=== PATIENT | female | born 1985 | race Caucasian/White ===

== ENCOUNTER 2021-11-12 18:11 | Emergency (ER) | payer OTHER, SELFPAY ==
[2021-11-12 18:28] VITALS: BP 118/69; PULSE 88; RESP 22; TEMP 36.8; O2SAT 100
--- NOTE | 2021-11-12 18:50 | DI.US.S_ITS ---
PROCEDURE: US OB <= 14 WEEKS FETUS INDICATIONS: SPOTTING, CRAMPING; HX SAB X 2 OUTSIDE/PRIOR DATING DATA: Last menstrual period (LMP): 09/25/2021. LMP-based estimated date of delivery (CANDI): 07/02/2022. First dating scan (date and location): 11/12/2021 (by mean gestational sac diameter). Estimated date of delivery (CANDI) from first dating scan: 07/10/2022. TECHNIQUE: Real-time scanning was performed of the fetus and maternal pelvic organs, with image documentation. Endovaginal scanning was also performed to better visualize the fetus and maternal ovaries. COMPARISON: None. FINDINGS: Embryo: There is an intrauterine gestational sac demonstrated. Mean sac diameter measures up to 0.9 cm corresponding to a gestational age of 5 weeks 5 days. No discrete yolk sac or pole identified on the current study. Maternal organs: Ovaries appear within normal size limits without adnexal mass identified. IMPRESSION: 1. Intrauterine cystic lesion likely representing a gestational sac with a mean sac diameter corresponding to gestational age of 5 weeks 5 days. No yolk sac or pole identified at this time which may be due to early gestational age. However, the differential includes a spontaneous in progress or an anembryonic . Recommend clinical follow-up and if indicated, a short-term repeat ultrasound may be performed for further evaluation. We strive to produce accurate, complete, and clear reports of imaging services. To assist us in improving patient care, this report was composed using standard report templates and voice recognition software. Therefore, it may contain abnormal punctuation, insertions and/or omissions. Occasional wrong-word or sound-alike substitutions may occur. Though we review the report and make efforts to correct it, we do recommend that the report be read carefully in proper context to recognize any text inaccuracies. Dictated by: Olvin Ramos M.D. on 11/12/2021 at 20:16 Approved by: Olvin Ramos M.D. on 11/12/2021 at 20:19
[2021-11-12 20:36] LABS: HCG Quantitative /Beta subunit 4039.3 mIU/mL
--- NOTE | 2021-11-12 22:39 | ED.PREGNANCY ---
HPI - General Chief complaint: OB/Uterine Contractions Stated complaint: Spotting and Cramping/7 Wks Time Seen by Provider: 11/12/21 22:38 Source: patient Mode of arrival: Ambulatory History of Present Illness HPI Narrative: Patient is a 36-year-old female 2 miscarriages presenting today with what she thinks is 7 weeks with some vaginal cramping and spotting. It started this morning. She has had 2 previous miscarriages got her little concerned. She does not have an appointment with her OB in till 11 weeks. She has no nausea or vomiting. She is taking prenatals. She is not remember her blood type a thinks she is B-positive she never got any RhoGAM from her previous miscarriages or the 1st when she had a placenta previa Related Data Allergies Allergy/AdvReac Type Severity Reaction Status Date / Time No Known Drug Allergies Allergy Verified 11/12/21 18:29 Review of Systems Review of Systems Narrative: GENERAL: Denies chills, fatigue, malaise, fever, sweats, travel HEENT: Denies sinus pain, ear pain, sore throat, difficulty swallowing, neck pain RESPIRATORY: Denies dyspnea, cough, wheezing, hemoptysis, sputum. CARDIOVASCULAR: Denies chest pain, palpitations, orthopnea, edema GASTROINTESTINAL: Denies nausea, vomiting, abdominal pain, diarrhea, constipation, melena. IP LITIGATION PARALEGAL: See HPI : Denies dysuria, frequency, incontinence, hematuria, urinary retention, flank pain. MUSCULOSKELETAL: Denies weakness, joint pain, or bony pain SKIN: No rash, no erythema, no pruritus NEUROLOGIC: Denies weakness, dizziness, headache, numbness, change in speech, confusion PSYCHIATRIC: No concerning psychosocial issues. 12 point review of systems is negative except for those stated above and HPI Exam Initial Vital Signs Initial Vital Signs: Vital Signs Temperature 98.2 F 11/12/21 18:28 Pulse Rate 88 11/12/21 18:28 Respiratory Rate 22 11/12/21 18:28 Blood Pressure 118/69 11/12/21 18:28 Pulse Oximetry 100 11/12/21 18:28 GENERAL: Appearing 36-year-old femaleand in no acute distress. HEENT: Head atraumatic,EOMI, pupils reactive, face symmetric, moist mucous membranes CARDIOVASCULAR: No cyanosis peripheral pulses intact RESPIRATORY: No respiratory distress speaking full is a ABDOMEN: Soft, nontender. Normoactive bowel sounds all 4 quadrants. No guarding or rebound. EXTREMITIES: Normal range of motion, no clubbing or edema. Neurovascularly intact NEUROLOGICAL: Alert and oriented x4. SKIN: Warm, dry, no laceration, no petechiae, no rashes or lesions. Course Orders Ordered: ED Orders 11/12/21 18:50 US OB <= 14 weeks fetus Stat 11/12/21 19:55 HCG Quantitative /Beta subunit Stat Vital Signs Vital signs: Vital Signs - 8 hr 11/12/21 22:58 Pulse Rate 100 H Respiratory Rate 16 Blood Pressure 116/69 Pulse Oximetry 98 MDM - OB/Uterine Contractions Lab Data Labs: Lab Results 11/12/21 Range/Units 19:55 HCG, Quant 4039.3 mIU/mL Point of Care Testing Test Results Positive Urine Dip Bedside Urine Glucose Negative Bedside Urine Bilirubin - Negative Bedside Urine Ketone - Negative Urine Specific [place] 1.015 Bedside Urine Occult Blood - Negative Bedside Urine pH 6 Bedside Urine Protein - Negative Bedside Urine Urobilinogen - Negative Bedside Urine Nitrite - Negative Bedside Urine Leukocytes - Negative Esterase Imaging Data US - OB: Radiologist's Impression: PROCEDURE:? US OB <= 14 WEEKS FETUS ? INDICATIONS:? SPOTTING, CRAMPING; HX SAB X 2 ? OUTSIDE/PRIOR DATING DATA:? Last menstrual period (LMP):? 09/25/2021.? LMP-based estimated date of delivery (CANDI):? 07/02/2022.? First dating scan (date and location):? 11/12/2021 (by mean gestational sac diameter).? Estimated date of delivery (CANDI) from first dating scan:? 07/10/2022. ? TECHNIQUE:? Real-time scanning was performed of the fetus and maternal pelvic organs, with image documentation.? Endovaginal scanning was also performed to better visualize the fetus and maternal ovaries.? ? COMPARISON:? None. ? FINDINGS:? ? Embryo:? There is an intrauterine gestational sac demonstrated.? Mean sac diameter measures up to 0.9 cm corresponding to a gestational age of 5 weeks 5 days.? No discrete yolk sac or pole identified on the current study. ? Maternal organs:? Ovaries appear within normal size limits without adnexal mass identified.? ? ? IMPRESSION:? ? 1. Intrauterine cystic lesion likely representing a gestational sac with a mean sac diameter corresponding to gestational age of 5 weeks 5 days.? No yolk sac or pole identified at this time which may be due to early gestational age.? However, the differential includes a spontaneous in progress or an anembryonic .? Recommend clinical follow-up and if indicated, a short-term repeat ultrasound may be performed for further evaluation. ? We strive to produce accurate, complete, and clear reports of imaging services. To assist us in improving patient care, this report was composed using standard report templates and voice recognition software. Therefore, it may contain abnormal punctuation, insertions and/or omissions. Occasional wrong-word or sound-alike substitutions may occur. Though we review the report and make efforts to correct it, we do recommend that the report be read carefully in proper context to recognize any text inaccuracies. ? Dictated by: Olvin Ramos M.D. on 11/12/2021 at 20:16 ? ? Approved by: Olvin Ramos M.D. on 11/12/2021 at 20:19 ? MDM Narrative Medical decision making narrative: Patient overall appears well very minimal pain. Ultrasound shows a gestational sac without a yolk sac or pole. Concern for possible demise. However can not confirm at this time. She has no significant vaginal bleeding. Recommend repeat hCG in 48 hours. Patient understands that she has had 2 miscarriages in the past and she has 3 healthy children this was a surprise but welcomed . Discharge Plan Departure Patient Disposition: Home Clinical Impression: Miscarriage, threatened, early Instructions: Threatened Miscarriage Activity Restrictions/Additional Instructions: HCG 4039 *You have been diagnosed with possible miscarriage *What to do: At this time ultrasound cannot confirm no heart be is seen but it might be too early. Please have your blood work rechecked in 48 hours. Call your OB tomorrow to see if they can put in an order for you. *Continue to take medications as directed *Follow up with your primary care provider in 2-3 days or call [phone] Call OB tomorrow *Return to ER if you should have increased vaginal bleeding more than 1-2 super pads in 1 hour cramping dizziness lightheadedness persistent vomiting or any new, worsening or concerning symptoms Referrals: Bjorn Barrow RT [Primary Care Provider] - Osmin Kwan MD [Physician] -
[2021-11-12 22:58] VITALS: BP 116/69; PULSE 100; RESP 16; O2SAT 98
== END 2021-11-12 23:05 | disposition home or self-care (01) ==
PROVIDERS: Emergency Provider Emergency Medicine
DX: O20.0 Threatened abortion (principal); Z3A.01 Less than 8 weeks gestation of pregnancy
CPT/HCPCS: 76801; 81003; 81025; 84702; 99282; 99283

== ENCOUNTER → 2021-11-14 09:46 | Outpatient (CLI) | payer OTHER, SELFPAY ==
[2021-11-14 11:57] LABS: HCG Quantitative /Beta subunit 4666.6 mIU/mL
== END ==
PROVIDERS: Referring Provider Obstetrics & Gynecology; Visit Provider Obstetrics & Gynecology
DX: O20.9 Hemorrhage in early pregnancy, unspecified (principal)
CPT/HCPCS: 36415; 84702